=== PATIENT | male | born 1985 | race Caucasian/White ===

== ENCOUNTER 2016-10-13 08:41 | Emergency (ER) | payer OTHER ==
[~2016-10-13] VITALS: Ht 172.7 cm; Wt 74.8 kg
--- NOTE | 2016-10-13 10:14 | ED HAND/WRIST INJURY COMPLAINT ---
History of Present Illness General Chief Complaint: Hand or Wrist Injury Stated Complaint: R HAND INJURY Source: patient Exam Limitations: no limitations Vital Signs & Intake/Output Vital Signs & Intake/Output Vital Signs Date Time Temp Pulse Resp B/P Pulse O2 O2 Flow FiO2 Ox Delivery Rate 10/13 1141 74 18 123/58 97 Room Air 10/13 1139 99 Room Air 10/13 0844 97.5 80 20 162/93 100 Room Air Allergies Coded Allergies: NO KNOWN ALLERGIES (11/06/11) Reconcile Medications No Known Home Medications Triage Note: PT TO ED C/O LAC TO RIGHT HAND MIDDLE FINGER FROM A PIECE OF COUNTER TOP. UNKNOWN LAST TETANUS. 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 Triage Nurses Notes Reviewed? yes Occurred: just prior to arrival Duration: hour(s):, constant Timing: single episode today Injury Environment: home No Modifying Factors: none HPI: 31-year-old male comes into emergency room for further evaluation of laceration to right third finger. Patient cut it on a laminate/plastic. Tetanus shot up- to-date. Associated bleeding. Mild throbbing pain. Continue his. Full range of motion. Denies any other associated symptoms or trauma. Small cut to second and fourth finger Past History Travel History Traveled to [place] past 21 day No Medical History Any Pertinent Medical History? none Surgical History Surgical History: none Psychosocial History What is your primary language French Tobacco Use: Current Daily Use Daily Tobacco Use Amount/Type: => 5 Cigarettes daily ETOH Use: denies use Illicit Drug Use: denies illicit drug use Family History Hx Contributory? No Review of Systems Review of Systems Constitutional: Reports: no symptoms. EENTM: Reports: no symptoms. Respiratory: Reports: no symptoms. Cardiovascular: Reports: no symptoms. GI: Reports: no symptoms. Genitourinary: Reports: no symptoms. Musculoskeletal: Reports: see HPI. Skin: Reports: see HPI. Neurological/Psychological: Reports: no symptoms. Hematologic/Endocrine: Reports: no symptoms. Immunologic/Allergic: Reports: no symptoms. All Other Systems: Reviewed and Negative Physical Exam Physical Exam General Appearance: well developed/nourished Head: atraumatic Eyes: Bilateral: normal appearance. Ears, Nose, Throat: normal ENT inspection, hearing grossly normal Neck: normal inspection Cardiovascular/Respiratory: no respiratory distress Back: normal inspection Hand Left: normal inspection Hand Right: 4 cm laceration right third finger, avulsed, irregular,, Refill present in all fingers less than 2 seconds, radial pulses 2+,, small skin avulsion fourth finger, half centimeter superficial laceration second finger, Neurologic/Tendon: normal sensation, normal motor functions, normal tendon functions, responds to pain, no evidence tendon injury, no pulse deficit Skin: intact, normal color, warm/dry Lymphatic: no anterior cervical sachin Progress Differential Diagnosis: dislocation, fracture, paronychia, sprain, tenosynovitis , tendon laceration, Plan of Care: 10/13/2016 12:40:40 PM Patient tolerated procedure well. Return in 10 days for suture removal. Return if any other concerns. Departure Departure Disposition: HOME OR SELF CARE Condition: Stable Clinical Impression Primary Impression: Finger laceration Referrals: PATIENT HAS NO PRIMARY CARE DR (PCP/Family) Additional Instructions: Return in 10 days for suture removal. Stay in splint until then. Return to emergency room immediately if any other concerns worsening symptoms. Please note that there might be incidental findings in your evaluation that are unrelated to the current emergency department visit. Please notify your primary care doctor about this emergency department visit in order to obtain and review all of the testing performed so that these incidental findings can be monitored as needed. If you had an x-ray performed, please understand that some fractures may not be seen on the initial set of x-rays. If your symptoms persist you might need a repeat set of x-rays to check for such a fracture. If you had a laceration evaluated, please understand that foreign bodies such as glass or wood may not be visible to the naked eye or on plain x-rays. If the wound becomes red, swollen, increasingly more painful or if there is any drainage from the wound, please have it reevaluated by a physician for the possibility of a retained foreign body. Departure Forms: Customer Survey General Discharge Information Prescriptions: Current Visit Scripts No Known Home Medications Procedures Laceration/Wound Repair Progress: Laceration right second finger, 4 cm in length, digital block with 1% lidocaine, 5 mL, Betadine prep, irrigated with saline, Betadine prep, sterile technique, 4. 0 nylon sutures placed, 9 sutures placed, bacitracin dry sterile dressing, finger splint, Dermabond used on second finger for superficial laceration half a centimeter, Performed by PA student with my supervision,
[2016-10-13 11:41] VITALS: BP 123/58
== END 2016-10-13 11:55 ==
LOC: ERH 08:41
DX: S61.212A Laceration without foreign body of right middle finger without damage to nail, initial encounter (principal); Y28.8XXA Contact with other sharp object, undetermined intent, initial encounter; Y93.9 Activity, unspecified; Y92.9 Unspecified place or not applicable